=== PATIENT | male | born 1955 | race Hispanic/Latino ===

== ENCOUNTER 2021-09-01 06:23 | Day surgery (SDC) | payer MEDICARE, OTHER ==
[2021-09-01] MEDS ORDERED: SODIUM CHLORIDE 0.9% 1000 ML 1,000 ML IV SCH (07:00)
[2021-09-01 07:39] LABS: INR 1.09 (0.87-1.13); Partial Thromboplastin Time 34.9 Sec. (24.2-36.6)
[2021-09-01 07:43] LABS: Basophils % (Auto) 0.6 % (0.0-1.8); Eosinophils # (Auto) 0.1 K/mm3 (0.0-0.4); Eosinophils % (Auto) 1.9 % (0.0-4.3); Hematocrit 52.7 % (35.5-45.6); Hemoglobin 16.6 gm/dl (11.8-15.2); Lymphocytes # (Auto) 1.1 K/mm3 (1.2-5.4); Lymphocytes % (Auto) 14.9 % (13.4-35.0); Mean Corpuscular HGB Conc 31 % (32-34); Mean Corpuscular Volume 84 fl (84-94); Monocytes # (Auto) 0.7 K/mm3 (0.0-0.8); Platelet Count 157 K/mm3 (140-440); Red Blood Count 6.26 M/mm3 (3.65-5.03); Red Cell Distribution Width 14.5 % (13.2-15.2)
[2021-09-01 07:49] LABS: BUN/Creatinine Ratio 17; Blood Urea Nitrogen 15 mg/dL (9-20); Hemolysis Index 4
--- NOTE | 2021-09-01 08:18 | Anesthesia Consultation ---
Anesthesia Consult and Med Hx Date of service: 09/01/21 - Airway Anesthetic Teeth Evaluation: Good ROM Head & Neck: Adequate Mental/Hyoid Distance: Adequate Mallampati Class: Class III Intubation Access Assessment: Possibly Difficult - Pre-Operative Health Status ASA Pre-Surgery Classification: ASA3 Proposed Anesthetic Plan: MAC - Pulmonary Hx Smoking: No Hx Respiratory Symptoms: No Hx Sleep Apnea: Yes (+ CPAP) - Cardiovascular System Hx Hypertension: Yes Hx Heart Attack/AMI: No (nml EF on recent TTE) Hx Percutaneous Transluminal Coronary Angioplasty (PTCA): No Hx Cardia Arrhythmia: Yes (a-flutter; took eliquis today) Hx Pacemaker: No Hx Internal Defibrillator: No - Central Nervous System CVA: No - Endocrine Hx Renal Disease: No Hx Liver Disease: No Hx Non-Insulin Dependent Diabetes: Yes Hx Thyroid Disease: No - Other Systems Hx Obesity: Yes (BMI 31) - Additional Comments Anesthesia Medical History Comments: No hx anesthetic complications.
--- NOTE | 2021-09-01 08:18 | Anesthesia Day of Surgery ---
Anesthesia Day of Surgery - Day of Surgery Patient Examined: Yes Patient H&P Reviewed: Yes Patient is NPO: Yes
[2021-09-01] MEDS ORDERED: LIDOCAINE MPF (2%) 20 MG/1 ML VIAL 5 ML ONE (08:19)
[2021-09-01] MEDS ORDERED: propofoL 200 MG/20 ML VIAL IV ONE (08:19)
--- NOTE | 2021-09-01 08:51 | Short Stay Summary ---
Short Stay Documentation Date of service: 09/01/21 - History H&P: obtained from office - Allergies and Medications Current Medications: Allergies No Known Allergies Allergy (Verified 09/01/21 06:49) Home Medications Medication Instructions Recorded Confirmed Last Taken Type Apixaban [Eliquis] 5 mg PO BID 09/01/21 09/01/21 09/01/21 04:15 History Empagliflozin [Jardiance] 10 mg PO DAILY 09/01/21 09/01/21 08/31/21 History 10 mg Glimepiride [Amaryl] 4 mg PO DAILY 09/01/21 09/01/21 08/31/21 History 4 mg Hydroxyzine HCl [hydrOXYzine] 50 mg PO BID 09/01/21 09/01/21 08/31/21 History 50 mg Metoprolol [Lopressor TAB] 50 mg PO DAILY 09/01/21 09/01/21 08/31/21 History 50 mg Tadalafil [Cialis] 20 mg PO 20 PRN 09/01/21 09/01/21 08/31/21 History 20 mg Testosterone Cypionate 200 mg IM Q2W 09/01/21 09/01/21 08/19/21 History 200 mg Valsartan [Diovan] 0.5 tab PO DAILY 09/01/21 09/01/21 08/31/21 History 0.5 tab Active Medications Sodium Chloride (Nacl 0.9% 1000 Ml) 1,000 mls @ 42 mls/hr IV DIRECT FAB - Brief post op/procedure progress note Date of procedure: 09/01/21 Pre-op diagnosis: a flutter Post-op diagnosis: other (Converted to sinus rhythm) Estimated blood loss: none - Hospital course Hospital course: Patient presented today for cardioversion for atrial flutter. After cardioversion, patient in normal sinus rhythm. Patient tolerated procedure well. Patient to be discharged home. - Disposition Condition at discharge: Good Disposition: 01 HOME / SELF CARE / HOMELESS - Discharge Diagnoses (1) Atrial flutter Status: Acute (2) Diabetes Status: Acute (3) Hypertension Status: Acute (4) Hyperlipemia Status: Acute Short Stay Discharge Plan Activity: advance as tolerated Diet: low fat, low cholesterol, low salt Additional Instructions: FOLLOW UP WITH PRIMARY MEDICAL DOCTOR IN 1 WEEK, RETURN TO EMERGENCY ROOM FOR MEDICAL EMERGENCIES. Follow up with: GOGO LIAO MD [Primary Care Provider] - 7 Days FELICIA CLINE MD [Staff Physician] - 09/30/21 1:15 pm (Patient has follow up at our [facility]. )
--- NOTE | 2021-09-01 09:08 | Cardiac Catherization Report ---
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 The patient has been on oral anticoagulation for over a month. Procedure was done with anesthesia. The patient was successfully cardioverted with 200 biphasic joules from atrial flutter to sinus rhythm. The patient tolerated the procedure well. SUMMARY: Successful cardioversion of atrial flutter to sinus rhythm with 200 biphasic joules. The patient tolerated the procedure well. Continue current medications. Discussed this with the patient and the patient's . TID: [id number] RECEIPT: [id number] VRM/PRE
[2021-09-01 09:35] VITALS: BP 119/82
--- NOTE | 2021-09-01 09:57 | Post Anesthesia Evaluation ---
- Post Anesthesia Evaluation Patient Participated: Yes Airway Patent: Yes Stable Respiratory Function: Yes Nausea/Vomiting: No Temp > 96.8F: Yes Pain Manageable: Yes Adequeate Hydration: Yes Anesthesia Complications: No
--- NOTE | 2021-09-03 14:07 | Electrocardiograph Report ---
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
--- NOTE | 2021-09-03 14:12 | Electrocardiograph Report ---
[facility] Test Date: 2021-09-01 Test Time: 09:07:45 Pat Name: LENNOX ARREAGA Department: Room: Gender: M Internet Project Manager: JUAN CARLOS : 1955 Requested By: FELICIA CLINE Order Number: [id number] Reading MD: Marlon White Measurements Intervals [place] Rate: 66 P: 42 MD: 186 QRS: -36 QRSD: 118 T: 28 QT: 395 QTc: 415 Interpretive Statements Sinus rhythm Probable left atrial enlargement Incomplete right bundle branch block Left axis deviation Compared to ECG 09/01/2021 07:33:26 Sinus rhythm has replaced atrial flutter Electronically Signed On 09-03-2021 14:11:47 EDT by Marlon White
== END 2021-09-01 11:05 | disposition home or self-care (01) ==
LOC: CATHLABREC 06:23
PROVIDERS: ATTEND Internal Medicine
DX: I48.92 Unspecified atrial flutter (principal); I48.3 Typical atrial flutter; I10 Essential (primary) hypertension; E11.65 Type 2 diabetes mellitus with hyperglycemia; E78.2 Mixed hyperlipidemia; K21.9 Gastro-esophageal reflux disease without esophagitis; E66.9 Obesity, unspecified; F41.9 Anxiety disorder, unspecified; Z68.31 Body mass index [BMI] 31.0-31.9, adult; Z85.46 Personal history of malignant neoplasm of prostate; Z79.899 Other long term (current) drug therapy; Z98.890 Other specified postprocedural states; Z83.3 Family history of diabetes mellitus; Z82.49 Family history of ischemic heart disease and other diseases of the circulatory system
CPT/HCPCS: 36415; 80048; 85025; 85610; 85730; 92960; 93005; J2704; J3490; J7030; J7120; Q0162